=== PATIENT | male | born 1980 | race Caucasian/White ===

== ENCOUNTER 2017-06-12 16:39 | Emergency (ER) | payer BC ==
[2017-06-12] MEDS ORDERED: Nitroglycerin 2% Oint 1 GM UD Packet TOP ONE (17:10)
[2017-06-12] MEDS ORDERED: Sodium Chloride 0.9% 10 ML Syringe FLUSH PRN (17:10)
[2017-06-12] MEDS ORDERED: LORazepam 2 MG/ML SDV IVPUSH ONE (17:46)
[2017-06-12] MEDS ORDERED: HYDROmorphone 1 MG/ML Syringe IVPUSH ONE (17:47)
--- NOTE | 2017-06-12 17:48 | EDM.PDOC ---
ED HPI GENERAL MEDICAL PROBLEM - General Chief Complaint: Chest Pain Stated Complaint: CHEST PAINS Time Seen by Provider: 06/12/17 16:49 Source of Information: Reports: Patient, Family, RN Notes Reviewed - History of Present Illness INITIAL COMMENTS - FREE TEXT/NARRATIVE: 36 year old male with hx aching chest pain present for most of the past 2 weeks but 5 or 6 episodes of much more intense discomfort anterior mid chest. Those episodes have resolved on their own lasting around 20 to 30 minutes. Today had had onset of even more severe discomfort radiating to base of neck that was not going away at home, now after arrival to ED somewhat better but still present. No radiation of pain to L arm or shoulder. No nausea, vomiting, or diaphoresis. No personal hx Htn, diabetes, hyperlipidemia. Family hx CAD. He does not smoke. The pain when severe does hurt more with deep breathing, he than does get mildly short of breath. No cough, fever, chills. No abd pain or hx reflux. Chest Pain Score (Numeric/FACES): 5 - Related Data Allergies Allergy/AdvReac Type Severity Reaction Status Date / Time No Known Allergies Allergy Verified 09/30/14 13:26 Home Meds: Home Meds FLUoxetine [PROzac] 40 mg PO DAILY 06/12/17 [History] Past Medical History - Past Health History Medical/Surgical History: Denies Medical/Surgical History Psychiatric History: Reports: Anxiety Social & Family History - Tobacco Use Smoking Status *Q: Never Smoker Second Hand Smoke Exposure: Yes - Alcohol Use Days Per Week of Alcohol Use: 2 Number of Drinks Per Day: 4 Total Drinks Per Week: 8 - Recreational Drug Use Recreational Drug Use: No ED ROS GENERAL - Review of Systems Review Of Systems: See Below Constitutional: Denies: Fever, Chills, Diaphoresis HEENT: Denies: Sinus Problem, Throat Pain Respiratory: Reports: Shortness of Breath (when having more discomfort). Denies : Wheezing, Cough, Sputum, Hemoptysis Cardiovascular: Reports: Chest Pain. Denies: Palpitations GI/Abdominal: Denies: Abdominal Pain, Decreased Appetite, Difficulty Swallowing , Nausea, Vomiting Musculoskeletal: Reports: Neck Pain. Denies: Shoulder Pain, Arm Pain Skin: Denies: Diaphoresis Neurological: Reports: Headache (mild). Denies: Numbness, Tingling ED EXAM, GENERAL - Physical Exam Exam: See Below General Appearance: Alert, Moderate Distress Eye Exam: Bilateral Eye: PERRL Throat/Mouth: Normal Inspection Head: Atraumatic. No: Facial Swelling Neck: Supple, Full Range of Motion Respiratory/Chest: No Respiratory Distress, Lungs Clear, Normal Breath Sounds, Other (there is mild chest wall tenderness L sternal border) Cardiovascular: Regular Rate, Rhythm GI/Abdominal: Soft, Non-Tender Back Exam: No: CVA Tenderness (L), CVA Tenderness (R) Extremities: No: Pedal Edema, Leg Pain Neurological: Alert, Oriented, No Motor/Sensory Deficits Skin Exam: Warm, Dry, Normal Color EKG INTERPRETATION EKG Date: 06/12/17 Rhythm: NSR [place]: Normal P-Wave: Present QRS: Normal ST-T: Other (very slight ST elevation, less than 1/2 mm V4,5,6) Course - Vital Signs Last Recorded V/S: Last Vital Signs Temp 96.7 F 06/12/17 16:48 Pulse 70 06/12/17 18:30 Resp 20 06/12/17 16:48 BP 121/81 06/12/17 18:30 Pulse Ox 97 06/12/17 16:48 - Orders/Labs/Meds Orders: Active Orders 24 hr Category Date Time Status EKG 12 Lead [EKG Documentation Completion] [RC] STAT Care 06/12/17 17:10 Active Peripheral IV Care [RC] . DIRECTED Care 06/12/17 17:11 Active Chest 1V Frontal [CR] Stat Exams 06/12/17 17:10 Taken Peripheral IV Insertion Adult [OM.PC] Stat Oth 06/12/17 17:10 Ordered Labs: Laboratory Tests 06/12/17 06/12/17 06/12/17 Range/Units 16:50 16:50 16:50 WBC 6.25 (4.23-9.07) K/mm3 RBC 5.08 (4.63-6.08) M/mm3 Hgb 15.7 (13.7-17.5) gm/L Hct 43.7 (40.1-51.0) % MCV 86.0 (79.0-92.2) fl MCH 30.9 (25.7-32.2) pg MCHC 35.9 H (32.2-35.5) g/dl RDW Std Deviation 39.8 (35.1-43.9) fL Plt Count 274 (163-337) K/mm3 MPV 9.7 (9.4-12.3) fl Neut % (Auto) 56.3 (34.0-67.9) % Lymph % (Auto) 32.6 (21.8-53.1) % [place] % (Auto) 8.8 (5.3-12.2) % Eos % (Auto) 1.3 (0.8-7.0) Baso % (Auto) 0.8 (0.1-1.2) % Neut # (Auto) 3.52 (1.78-5.38) K/mm3 Lymph # (Auto) 2.04 (1.32-3.57) K/mm3 [place] # (Auto) 0.55 (0.30-0.82) K/mm3 Eos # (Auto) 0.08 (0.04-0.54) K/mm3 Baso # (Auto) 0.05 (0.01-0.08) K/mm3 ESR (0-15) mm/hr D-Dimer, Quantitative (0.19-0.59) mg/L Sodium 139 (136-145) mEq/L Potassium 3.5 (3.5-5.1) mEq/L Chloride 104 (98-107) mEq/L Carbon Dioxide 24 (21-32) mEq/L Anion Gap 14.5 (5-15) BUN 13 (7-18) mg/dL Creatinine 1.2 (0.7-1.3) mg/dL Est Cr Clr Drug Dosing 75.32 mL/min Estimated GFR (MDRD) > 60 (>60) mL/min BUN/Creatinine Ratio 10.8 L (14-18) Glucose 129 H (74-106) mg/dL Calcium 8.7 (8.5-10.1) mg/dL Total Bilirubin 1.2 H (0.2-1.0) mg/dL AST 24 (15-37) U/L ALT 39 (16-63) U/L Alkaline Phosphatase 105 (46-116) U/L Troponin I 0.467 H* (0.00-0.056) ng/mL C-Reactive Protein < 0.2 (<1.0) mg/dL Total Protein 7.4 (6.4-8.2) g/dl Albumin 4.0 (3.4-5.0) g/dl Globulin 3.4 gm/dL Albumin/Globulin Ratio 1.2 (1-2) TSH 3rd Generation 2.764 (0.358-3.74) uIU/mL 06/12/17 06/12/17 Range/Units 16:50 16:50 WBC (4.23-9.07) K/mm3 RBC (4.63-6.08) M/mm3 Hgb (13.7-17.5) gm/L Hct (40.1-51.0) % MCV (79.0-92.2) fl MCH (25.7-32.2) pg MCHC (32.2-35.5) g/dl RDW Std Deviation (35.1-43.9) fL Plt Count (163-337) K/mm3 MPV (9.4-12.3) fl Neut % (Auto) (34.0-67.9) % Lymph % (Auto) (21.8-53.1) % [facility] % (Auto) (5.3-12.2) % Eos % (Auto) (0.8-7.0) Baso % (Auto) (0.1-1.2) % Neut # (Auto) (1.78-5.38) K/mm3 Lymph # (Auto) (1.32-3.57) K/mm3 [facility] # (Auto) (0.30-0.82) K/mm3 Eos # (Auto) (0.04-0.54) K/mm3 Baso # (Auto) (0.01-0.08) K/mm3 ESR 10 (0-15) mm/hr D-Dimer, Quantitative < 0.19 L (0.19-0.59) mg/L Sodium (136-145) mEq/L Potassium (3.5-5.1) mEq/L Chloride (98-107) mEq/L Carbon Dioxide (21-32) mEq/L Anion Gap (5-15) BUN (7-18) mg/dL Creatinine (0.7-1.3) mg/dL Est Cr Clr Drug Dosing mL/min Estimated GFR (MDRD) (>60) mL/min BUN/Creatinine Ratio (14-18) Glucose (74-106) mg/dL Calcium (8.5-10.1) mg/dL Total Bilirubin (0.2-1.0) mg/dL AST (15-37) U/L ALT (16-63) U/L Alkaline Phosphatase (46-116) U/L Troponin I (0.00-0.056) ng/mL C-Reactive Protein (<1.0) mg/dL Total Protein (6.4-8.2) g/dl Albumin (3.4-5.0) g/dl Globulin gm/dL Albumin/Globulin Ratio (1-2) TSH 3rd Generation (0.358-3.74) uIU/mL Meds: Medications Discontinued Medications Generic Name Dose Route Start Last Admin Trade Name Freq PRN Reason Stop Dose Admin Heparin Sodium (Porcine) 4,000 units 06/12/17 18:26 06/12/17 18:34 Heparin Sodium IVPUSH 06/12/17 18:27 4,000 units ONETIME ONE Administration Hydromorphone HCl 1 mg 06/12/17 17:47 Dilaudid IVPUSH 06/12/17 17:48 ONETIME ONE Hydromorphone HCl 1 mg 06/12/17 17:51 06/12/17 17:55 Dilaudid IVPUSH 06/12/17 17:52 1 mg ONETIME ONE Administration Heparin Sodium/Dextrose 25,000 units in 500 mls @ 20 mls/hr 06/12/17 18:45 18:42 Heparin 25,000 Units In D5w 500 Ml IV 20 mls/hr TITRATE DANE Administration Protocol 1,000 UNITS/HR Heparin Sodium/Dextrose Confirm 06/12/17 18:41 06/12/17 18:46 Heparin 25,000 Units In D5w 500 Ml Administered 06/12/17 18:42 Not Given Dose 500 mls @ as directed .ROUTE .STK-MED ONE Lorazepam 1 mg 06/12/17 17:46 06/12/17 17:58 Ativan IVPUSH 06/12/17 17:47 1 mg ONETIME ONE Administration Metoprolol Tartrate 25 mg 06/12/17 18:25 06/12/17 18:30 Lopressor PO 06/12/17 18:26 25 mg ONETIME ONE Administration Nitroglycerin 1 gm 06/12/17 17:10 06/12/17 17:21 Nitro-Bid 2% TOP 06/12/17 17:11 1 gm ONETIME ONE Administration Rosuvastatin Calcium 5 mg 06/12/17 18:45 06/12/17 18:41 Crestor PO 5 mg DAILY DANE Administration Sodium Chloride 10 ml 06/12/17 17:10 06/12/17 17:23 Saline Flush FLUSH 10 ml ASDIRECTED PRN Administration Keep Vein Open - Re-Assessments/Exams Free Text/Narrative Re-Assessment/Exam: 06/13/17 12:07. Patient had taken 2 full strength 325 aspirin at home about 30 minutes prior to arrival. Nitropaste applied. He was more comfortable at time of my exam but than shortly after that pain did get worse, anterior chest heaviness again radiating to base of neck. No nausea or diaphoresis with that. No rythm abnormality. Repeat EKG the same. Give ativan and dilaudid IV and that did help bring that back down to more mild discomfort which he describes as "baseline for the last 2 weeks". Trop. came back elevated at .45. CRP, Sed Rate normal. WBC very mildly elevated. CXR showed very mild cardiomegally. Heparin 4000 unit bolus ordered and Hep drip at 1000 units per hr. Given metropolol 25 mg PO, crestor 5 mg PO. Discussed with Dr Gupta, Cardiology, Dr Link Hospitalist, [facility] who do accept patient in transfer. No ground ambulance readily available, anticipate 1 hour wait, also known [place] travel between [facility] and [place]. Withj all of that in mind, acceleration of sx transfer arrangements made with [facility] for transfer. Transferred to [place] per family request. Departure - Departure Time of Disposition: 18:00 Disposition: DC/Tfer to Acute Hospital 02 Reason for Transfer *Q: Other Condition: Serious Clinical Impression: Acute coronary syndrome Referrals: Colin Edwards MD [Primary Care Provider] - Forms: ED Department Discharge - My Orders Last 24 Hours: My Active Orders 06/12/17 17:10 EKG 12 Lead [EKG Documentation Completion] [RC] STAT Chest 1V Frontal [CR] Stat Peripheral IV Insertion Adult [OM.PC] Stat 06/12/17 17:11 Peripheral IV Care [RC] . DIRECTED - Assessment/Plan Last 24 Hours: My Active Orders 06/12/17 17:10 EKG 12 Lead [EKG Documentation Completion] [RC] STAT Chest 1V Frontal [CR] Stat Peripheral IV Insertion Adult [OM.PC] Stat 06/12/17 17:11 Peripheral IV Care [RC] . DIRECTED
[2017-06-12] MEDS ORDERED: HYDROmorphone 0.5 MG/0.5 ML SYRINGE IVPUSH ONE (17:51)
[2017-06-12] MEDS ORDERED: Metoprolol Tartrate 50 MG Tab PO ONE (18:25)
[2017-06-12] MEDS ORDERED: Heparin Sodium 5,000 Units/ML Vial IVPUSH ONE (18:26)
[2017-06-12 18:36] VITALS: BP 121/81
[2017-06-12] MEDS ORDERED: Heparin Sodium/D5W 500 ML ONE (18:41)
[2017-06-12] MEDS ORDERED: Heparin Sodium/D5W 25,000 UNITS/500 ML BAG IV SCH (18:45)
[2017-06-12] MEDS ORDERED: Rosuvastatin 10 MG Tab PO SCH (18:45)
--- NOTE | 2017-06-14 07:59 | CR ---
Chest: Frontal view of the chest was obtained. Comparison: Prior chest x-ray of 06/20/14. Heart size and mediastinum are within normal limits. Lungs are clear. Bony structures are unremarkable. Impression: 1. Nothing acute is identified on frontal chest x-ray. Diagnostic code #1
== END 2017-06-12 19:00 ==
LOC: SUPCPDRO 16:39 → JD.ED 16:39
DX: I24.9 Acute ischemic heart disease, unspecified (principal); Z79.899 Other long term (current) drug therapy; Z77.22 Contact with and (suspected) exposure to environmental tobacco smoke (acute) (chronic)
CPT/HCPCS: 36415; 71045; 80053; 84443; 84484; 85025; 85379; 85652; 86140; 93005; 96374; 96375; 99285; A9270; J1170; J1644; J2060; J7050; 93010

== ENCOUNTER 2017-09-18 09:54 | Emergency (ER) | payer BC ==
[2017-09-18] MEDS ORDERED: Sodium Chloride 0.9% 10 ML Syringe FLUSH PRN (10:12)
[2017-09-18 10:50] VITALS: BP 156/94
--- NOTE | 2017-09-18 11:05 | EDM.PDOC ---
ED HPI GENERAL MEDICAL PROBLEM - General Chief Complaint: Chest Pain Stated Complaint: SOB AND BRUISE TO CHEST THAT IS NOT GOING AWAY Time Seen by Provider: 09/18/17 10:05 Source of Information: Reports: Patient History Limitations: Reports: No Limitations - History of Present Illness INITIAL COMMENTS - FREE TEXT/NARRATIVE: 36 y/o M with L chest pain. He has a hx of NSTEMI in 06/20 and is s/p 1 stent. He has been taking all of his medication including anti-platelet agent as prescribed. 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 He's had chest pain since then. He's also felt mildly SOB. He came in for eval today because it didn't seem to be getting better. No cough/fever. Has sharp pain located in L chest area. States it does seem somewhat similar to when he had his NC. Pain comes and goes. Doesn't completely resolve. Pain is mild-moderate severity. Hasn't taken any pain meds. Denies additional injury. No abdominal pain/vomiting. Left Chest Pain Score (Numeric/FACES): 4 - Related Data Allergies Allergy/AdvReac Type Severity Reaction Status Date / Time No Known Allergies Allergy Verified 09/18/17 10:00 Home Meds: Home Meds FLUoxetine [PROzac] 40 mg PO DAILY 06/12/17 [History] Aspirin [[place] Aspirin] 81 mg PO DAILY 06/22/17 [History] Metoprolol Succinate 25 mg PO DAILY 06/22/17 [History] Prasugrel [Effient] 10 mg PO DAILY 06/22/17 [History] atorvaSTATin Calcium [Atorvastatin Calcium] 40 mg PO DAILY 06/22/17 [History] buPROPion [buPROPion XL] 150 mg PO BEDTIME 08/04/17 [History] Past Medical History - Past Health History Medical/Surgical History: Denies Medical/Surgical History Cardiovascular History: Reports: NC, Stents Psychiatric History: Reports: Anxiety Social & Family History - Tobacco Use Smoking Status *Q: Never Smoker - Recreational Drug Use Recreational Drug Use: No ED ROS GENERAL - Review of Systems Review Of Systems: See Below Constitutional: Denies: Fever HEENT: Reports: No Symptoms Respiratory: Reports: Shortness of Breath. Denies: Cough Cardiovascular: Reports: Chest Pain Endocrine: Reports: No Symptoms GI/Abdominal: Denies: Abdominal Pain : Reports: No Symptoms Musculoskeletal: Reports: No Symptoms Skin: Reports: Bruising Psychiatric: Reports: No Symptoms Hematologic/Lymphatic: Reports: No Symptoms Immunologic: Reports: No Symptoms ED EXAM, GENERAL - Physical Exam Exam: See Below Exam Limited By: No Limitations General Appearance: Alert, WD/WN, No Apparent Distress Eye Exam: Bilateral Eye: Normal Inspection Ears: Normal External Exam Nose: Normal Inspection Throat/Mouth: Normal Inspection, Normal Oropharynx, Normal Voice, No Airway Compromise Head: Atraumatic, Normocephalic Neck: Normal Inspection, Supple, Full Range of Motion Respiratory/Chest: No Respiratory Distress, Lungs Clear, Normal Breath Sounds, No Accessory Muscle Use, Other (L anterior chest wall hematoma/ecchymosis and TTP around area of ribs 8-10. No crepitus. ) Cardiovascular: Normal Peripheral Pulses, Regular Rate, Rhythm, No Edema, No Murmur GI/Abdominal: Soft, Non-Tender, No Distention, Other (old appearing ecchymosis to mid-abdomen, no TTP). No: Rebound Back Exam: Normal Inspection Extremities: Normal Inspection Neurological: Alert, Oriented, Normal Cognition, No Motor/Sensory Deficits Psychiatric: Normal Affect, Normal Mood Skin Exam: Warm, Dry, Intact, Normal Color, No Rash Course - Vital Signs Last Recorded V/S: Last Vital Signs Temp 36.3 C 09/18/17 10:46 Pulse 50 L 09/18/17 10:46 Resp 16 09/18/17 10:46 BP 156/94 H 09/18/17 10:46 Pulse Ox 97 09/18/17 10:46 - Orders/Labs/Meds Orders: Active Orders 24 hr Category Date Time Status EKG Documentation Completion [RC] ASDIRECTED Care 09/18/17 10:25 Active Peripheral IV Care [RC] . DIRECTED Care 09/18/17 10:13 Active Peripheral IV Care [RC] . DIRECTED Care 09/18/17 10:13 Active Chest 2V [CR] Stat Exams 09/18/17 10:13 Taken Sodium Chloride 0.9% [Saline Flush] Med 09/18/17 10:12 Active 10 ml FLUSH ASDIRECTED PRN Peripheral IV Insertion Adult [OM.PC] Routine Oth 09/18/17 10:13 Ordered EKG 12 Lead [EK] Stat Ther 09/18/17 10:25 Ordered Medication Orders Sodium Chloride (Saline Flush) 10 ml FLUSH ASDIRECTED PRN PRN Reason: Keep Vein Open Last Admin: 09/18/17 10:28 Dose: 10 ml Labs: Laboratory Tests 09/18/17 09/18/17 Range/Units 10:02 10:02 WBC 6.59 (4.23-9.07) K/mm3 RBC 4.98 (4.63-6.08) M/mm3 Hgb 15.6 (13.7-17.5) gm/L Hct 44.6 (40.1-51.0) % MCV 89.5 (79.0-92.2) fl MCH 31.3 (25.7-32.2) pg MCHC 35.0 (32.2-35.5) g/dl RDW Std Deviation 39.6 (35.1-43.9) fL Plt Count 286 (163-337) K/mm3 MPV 9.2 L (9.4-12.3) fl Neut % (Auto) 71.9 H (34.0-67.9) % Lymph % (Auto) 17.8 L (21.8-53.1) % Jay % (Auto) 9.0 (5.3-12.2) % Eos % (Auto) 0.6 L (0.8-7.0) Baso % (Auto) 0.5 (0.1-1.2) % Neut # (Auto) 4.75 (1.78-5.38) K/mm3 Lymph # (Auto) 1.17 L (1.32-3.57) K/mm3 Jay # (Auto) 0.59 (0.30-0.82) K/mm3 Eos # (Auto) 0.04 (0.04-0.54) K/mm3 Baso # (Auto) 0.03 (0.01-0.08) K/mm3 Manual Slide Review Normal smear Sodium 134 L (136-145) mEq/L Potassium 4.1 (3.5-5.1) mEq/L Chloride 98 (98-107) mEq/L Carbon Dioxide 24 (21-32) mEq/L Anion Gap 16.1 H (5-15) BUN 8 (7-18) mg/dL Creatinine 1.0 (0.7-1.3) mg/dL Est Cr Clr Drug Dosing 90.38 mL/min Estimated GFR (MDRD) > 60 (>60) mL/min BUN/Creatinine Ratio 8.0 L (14-18) Glucose 112 H (74-106) mg/dL Calcium 8.8 (8.5-10.1) mg/dL Magnesium 1.9 (1.8-2.4) mg/dl Total Bilirubin 2.6 H (0.2-1.0) mg/dL AST 29 (15-37) U/L ALT 37 (16-63) U/L Alkaline Phosphatase 143 H (46-116) U/L Troponin I < 0.017 (0.00-0.056) ng/mL Total Protein 7.9 (6.4-8.2) g/dl Albumin 4.3 (3.4-5.0) g/dl Globulin 3.6 gm/dL Albumin/Globulin Ratio 1.2 (1-2) Meds: Medications Generic Name Dose Route Start Last Admin Trade Name Freq PRN Reason Stop Dose Admin Sodium Chloride 10 ml 09/18/17 10:12 09/18/17 10:28 Saline Flush FLUSH 10 ml ASDIRECTED PRN Administration Keep Vein Open - Re-Assessments/Exams Free Text/Narrative Re-Assessment/Exam: 09/18/17 11:10 EKG shows NSR, no evidence of ischemia. CXR shows normal cardiac silhouette, no ptx, possible old 8th rib fracture, possible acute 9th rib fracture, nondisplaced. This does correlate with patient's area of injury. CBC normal. Chem normal. LFT's show isolated elevated total bili at 2.6, otherwise normal labs. Suspect this elevation could be due to hematoma re-absorption. Advised him to f/u with PCP for repeat labs. He also has soon cardiology f/u planned. Discussed pain control, return precautions. Departure - Departure Time of Disposition: 11:16 Disposition: Home, Self-Care 01 Clinical Impression: Chest wall hematoma Qualifiers: Encounter type: initial encounter Laterality: left Qualified Code(s): S20.212A - Contusion of left front wall of thorax, initial encounter Instructions: Chest Contusion, Adult, [id number] Referrals: Colin Edwards MD [Primary Care Provider] - Forms: ED Department Discharge Additional Instructions: 1. Follow up with your global human resources director as planned. Your troponin today was undetectable (normal). Your EKG also looked normal. 2. Your bilirubin was mildly elevated at 2.6. The rest of your liver function tests were normal. The elevated bilirubin may be due to your body absorbing the hematoma from your recent injury. 3. Take ibuprofen and/or tylenol (acetaminophen) for pain. 4. Follow up with your regular doctor in about 2 weeks. Discuss the mildly elevated bilirubin and see if he thinks it needs to be rechecked. 5. Return to the ED if you have worsening chest pain, shortness of breath, or other concerning symptoms. - My Orders Last 24 Hours: My Active Orders 09/18/17 10:12 Sodium Chloride 0.9% [Saline Flush] 10 ml FLUSH ASDIRECTED PRN 09/18/17 10:13 Peripheral IV Care [RC] . DIRECTED Peripheral IV Care [RC] . DIRECTED Chest 2V [CR] Stat Peripheral IV Insertion Adult [OM.PC] Routine 09/18/17 10:25 EKG Documentation Completion [RC] ASDIRECTED EKG 12 Lead [EK] Stat - Assessment/Plan Last 24 Hours: My Active Orders 09/18/17 10:12 Sodium Chloride 0.9% [Saline Flush] 10 ml FLUSH ASDIRECTED PRN 09/18/17 10:13 Peripheral IV Care [RC] . DIRECTED Peripheral IV Care [RC] . DIRECTED Chest 2V [CR] Stat Peripheral IV Insertion Adult [OM.PC] Routine 09/18/17 10:25 EKG Documentation Completion [RC] ASDIRECTED EKG 12 Lead [EK] Stat
--- NOTE | 2017-09-20 08:25 | CR ---
Chest: Two views of the chest were obtained. Comparison: Prior chest x-ray of 06/12/17. Heart size and mediastinum are normal. Lungs are clear. Bony structures are unremarkable. Impression: 1. Nothing acute is seen on two-view chest x-ray. Diagnostic code #1
== END 2017-09-18 11:18 | disposition home or self-care (01) ==
LOC: JD.ED 09:54
DX: S20.212A Contusion of left front wall of thorax, initial encounter (principal); I25.2 Old myocardial infarction; Z79.82 Long term (current) use of aspirin; Z79.899 Other long term (current) drug therapy; W21.07XA Struck by softball, initial encounter; Y99.0 Civilian activity done for income or pay
CPT/HCPCS: 36415; 71046; 80053; 83735; 84484; 85025; 93005; 99285; J7050; 93010; 99284

== ENCOUNTER 2020-04-17 07:19 | Emergency (ER) | payer OTHER, BC ==
[2020-04-17] MEDS ORDERED: Sodium Chloride 0.9% 10 ML Syringe FLUSH PRN (07:39)
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
--- NOTE | 2020-04-17 08:38 | CT ---
CT cervical spine Technique: Multiple axial sections were obtained from above C1 inferiorly to the mid T2 level. Reconstructed coronal and sagittal images were obtained. Comparison: No prior cervical spine imaging is available. Findings: Mildly displaced fractures are seen within the base of the spinous process of C6 and C7. There is moderately severe disc space narrowing at C4-5 and C5-6 with severe disc space narrowing at C6-7. Slight disc protrusions into the inferior and superior endplates at C6-7 are noted. Scattered anterior osteophytes are noted most prominent at C6-7. There is posterior spurring noted at C4-5 through C6-7. Incomplete arch is noted of C1 which is chronic. Incomplete posterior arch is noted at C1 which appears to be chronic. Alignment at C2-3 appears normal. No central canal stenosis or neural foraminal stenosis is seen. No additional fracture is appreciated within the cervical spine. Scattered degenerative change within the uncovertebral joints is seen at C4-5 through C6-7. Impression: 1. Displaced fractures involving the base of the spinous process is noted at C6 and C7. 2. Degenerative change as noted above. 3. No additional fracture is appreciated. Diagnostic code #3
--- NOTE | 2020-04-17 08:44 | CT ---
CT chest Technique: Multiple axial sections through the chest were obtained. Intravenous contrast was utilized. Reconstructed coronal and sagittal images were obtained. Findings: Mediastinum and hilar regions appear without adenopathy. Thoracic aorta shows no aneurysm. There appears to be a coronary artery stent present. No pericardial thickening is appreciated. Lungs are clear with no acute parenchymal change. No pleural effusions or discrete pneumothorax is noted. Small nodule is noted within the right middle lobe measuring about 4 mm. No additional nodule is seen. Bone window settings were reviewed which show no definite acute osseous abnormality. Prior left shoulder surgery is noted Impression: 1. Small nodule within the right middle lobe. If patient is not a smoker this can be ignored. If patient is a smoker, recommend repeat noncontrast chest CT study in one year. 2. Nothing acute is otherwise appreciated on CT study of the chest. Diagnostic code #3 CT abdomen and pelvis Technique: Multiple axial sections were obtained from above the dome of the diaphragm inferiorly through the pubic symphysis. Intravenous contrast was utilized. No oral contrast has been given. Findings: Low-density lesion is noted within the right lobe of the liver. This finding is most likely due to a cyst measuring 2.0 cm. No additional abnormality is seen within the liver. Spleen appears within normal limits. Adrenal glands show no nodule. No abnormality is appreciated within the spleen. Gallbladder contains no calcified gallstones. Kidneys show symmetric contrast enhancement without hydronephrosis or mass. Aorta shows no aneurysm. No retroperitoneal adenopathy or mesenteric abnormalities are seen. No pelvic mass or adenopathy is appreciated. No free fluid is seen. Appendix is seen which is normal in size. No discrete bowel wall thickening is appreciated. Bone window settings were reviewed which show slight degenerative change within the spine. No acute osseous finding is appreciated. Impression: 1. Cyst within the right lobe of the liver. 2. Nothing acute is appreciated on CT study of the abdomen and pelvis. Diagnostic code #2
--- NOTE | 2020-04-17 08:44 | CT ---
Head CT Technique: Multiple axial sections were obtained to the brain. Intravenous contrast was not utilized. Reconstructed coronal and sagittal images were obtained. Comparison: No previous study is available. Findings: Ventricles along with basal cisterns and sulci over the convexities appear within normal limits for the patient's age. No abnormal parenchymal densities are appreciated. No evidence of intracranial hemorrhage. No midline shift or mass-effect is seen. Bone window settings were reviewed which show no definite acute calvarial abnormality. Visualized paranasal sinuses and mastoid sinuses show nothing acute. Minimal areas of soft tissue swelling are noted within the scalp. Impression: 1. Slight areas of soft tissue swelling within the scalp. 2. No acute intracranial abnormality is appreciated. Diagnostic code #2
[2020-04-17] MEDS ORDERED: HYDROmorphone 1 MG/ML Syringe IVPUSH ONE (08:47)
--- NOTE | 2020-04-17 09:13 | CR ---
Right ankle: 4 views of the right ankle were obtained. Comparison: No previous ankle study. Soft tissue swelling is noted. Ankle mortise is symmetric. Bony exostosis is noted off the lateral tibia into the interosseous membrane which appears to be old. No acute fracture, dislocation or other bony abnormality is appreciated. Impression: 1. Soft tissue swelling. 2. No acute osseous abnormality is appreciated. Diagnostic code #2
--- NOTE | 2020-04-17 09:15 | CR ---
Left knee: 4 views of the left knee were obtained. Comparison: No prior knee study. No joint effusion is seen. Medial and lateral joint compartments are maintained in height. No discrete fracture or other bony abnormality is appreciated. Impression: 1. No acute osseous finding is seen on left knee exam. Diagnostic code #1
[2020-04-17 10:01] VITALS: BP 155/94; PULSE 74
== END 2020-04-17 09:46 | disposition home or self-care (01) ==
LOC: MERGE 07:19 → JD.ED 07:19
DX: S12.590A Other displaced fracture of sixth cervical vertebra, initial encounter for closed fracture (principal); S93.401A Sprain of unspecified ligament of right ankle, initial encounter; S80.02XA Contusion of left knee, initial encounter; S80.212A Abrasion, left knee, initial encounter; S00.81XA Abrasion of other part of head, initial encounter; S00.91XA Abrasion of unspecified part of head, initial encounter; R91.1 Solitary pulmonary nodule; Z79.82 Long term (current) use of aspirin; Z79.899 Other long term (current) drug therapy; V47.5XXA Car driver injured in collision with fixed or stationary object in traffic accident, initial encounter
CPT/HCPCS: 36415; 70450; 71260; 72125; 73564; 73610; 74177; 80053; 80179; 80306; 83690; 85025; 96374; 99284; J1170